=== PATIENT | female | born 1990 | race Caucasian/White ===

== ENCOUNTER 2020-07-11 14:11 | Emergency (ER) | payer OTHER, MEDICAID ==
--- NOTE | 2020-07-11 16:28 | EDM.PDOC ---
ED HPI GENERAL MEDICAL PROBLEM - General Chief Complaint: General Stated Complaint: TEAR IN LIBERAL HIP Time Seen by Provider: 07/11/20 15:24 Source of Information: Reports: Patient History Limitations: Reports: No Limitations - History of Present Illness INITIAL COMMENTS - FREE TEXT/NARRATIVE: 30 yo female visiting the area from [place]. She has had a right hip injury and is waiting to see orthopedic. She will be seeing [place]opedics in [place] her mother lives her. She has been taking hydrocodone 5/325 1 tablet twice daily, she did contact her PCP and was told would need to be seen before refill. - Related Data Allergies Allergy/AdvReac Type Severity Reaction Status Date / Time amoxicillin Allergy Respiratory Verified 07/11/20 15:50 Distress codeine Allergy Respiratory Verified 07/11/20 15:50 Distress doxycycline Allergy Respiratory Verified 07/11/20 15:50 Distress latex Allergy Respiratory Verified 07/11/20 15:50 Distress Penicillins Allergy Respiratory Verified 07/11/20 15:50 Distress sumatriptan [From Imitrex] Allergy Respiratory Verified 07/11/20 15:50 Distress Home Meds: Home Meds Hydrocodone/Acetaminophen [Hydrocodon-Acetaminophen 5-325] 1 - 2 tab PO Q6H PRN 07/11/20 [History] Sertraline HCl [Zoloft] 100 mg PO BEDTIME 07/11/20 [History] Past Medical History HEENT History: Reports: Impaired Vision Respiratory History: Reports: PE 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: - Infectious Disease History Infectious Disease History: Reports: Human Papilloma Virus (HPV) - Past Surgical History HEENT Surgical History: Reports: Oral Surgery, Tonsillectomy GI Surgical History: Reports: Cholecystectomy Female Surgical History: Reports: Tubal Ligation Social & Family History - Tobacco Use Tobacco Use Status *Q: Never Tobacco User - Recreational Drug Use Recreational Drug Use: No ED ROS GENERAL - Review of Systems Review Of Systems: See Below Constitutional: Denies: Fever, Chills Respiratory: Denies: Shortness of Breath, Wheezing Cardiovascular: Denies: Chest Pain Musculoskeletal: Reports: Joint Pain ED EXAM, GENERAL - Physical Exam Exam: See Below Exam Limited By: No Limitations General Appearance: Alert, WD/WN, No Apparent Distress Respiratory/Chest: No Respiratory Distress Extremities: Joint Swelling (right hip) Course - Vital Signs Last Recorded V/S: Last Vital Signs Temp 36.5 C 07/11/20 15:51 Pulse 97 07/11/20 15:51 Resp 18 07/11/20 15:51 BP 127/76 07/11/20 15:51 Pulse Ox 98 07/11/20 15:51 Departure - Departure Time of Disposition: 16:27 Disposition: Home, Self-Care 01 Condition: Good Clinical Impression: Labral tear of hip joint Qualifiers: Encounter type: subsequent encounter Laterality: right Qualified Code(s): S73.191D - Other sprain of right hip, subsequent encounter - Discharge Information *PRESCRIPTION DRUG MONITORING PROGRAM REVIEWED*: Yes *COPY OF PRESCRIPTION DRUG MONITORING REPORT IN PATIENT TESSIE: No Instructions: Hip Sprain Referrals: EMILY RIVERO [Other] Forms: ED Department Discharge Additional Instructions: 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
== END 2020-07-11 16:36 | disposition home or self-care (01) ==
LOC: JP.ED 14:11
DX: S73.191D Other sprain of right hip, subsequent encounter (principal); Z88.0 Allergy status to penicillin; Z88.5 Allergy status to narcotic agent; Z88.1 Allergy status to other antibiotic agents; Z91.040 Latex allergy status; Z88.8 Allergy status to other drugs, medicaments and biological substances; Z79.899 Other long term (current) drug therapy; X58.XXXD Exposure to other specified factors, subsequent encounter
CPT/HCPCS: 99283